=== PATIENT | female | born 1940 | race Caucasian/White ===

== ENCOUNTER 2022-08-27 14:56 | Emergency (ER) | payer MEDICARE, BC ==
[2022-08-27] MEDS ORDERED: Sodium Chloride 0.9% 10 ML Syringe FLUSH PRN (15:11)
[2022-08-27] MEDS ORDERED: Metoprolol Tartrate 5 MG/5 ML SDV IVPUSH ONE (15:16)
[2022-08-27] MEDS ORDERED: Metoprolol Tartrate 5 MG/5 ML SDV ONE (15:18)
[2022-08-27] MEDS ORDERED: Sodium Chloride 0.9% 500 ML IV ONE (15:26)
[2022-08-27 15:57] LABS: BASOPHILS PERCENT AUTO 0.5 % (0.2-1.5); HEMATOCRIT 36.9 % (34.2-48.2); HEMOGLOBIN 12.5 g/dL (11.4-15.5); LYMPHOCYTES ABSOLUTE AUTO 1.6 x10-3/uL (1.0-4.4); LYMPHOCYTES PERCENT AUTO 33.8 % (18.4-52.1); MEAN CORPUSCULAR HEMOGLOBIN 29.2 pg (23.9-33.9); MEAN CORPUSCULAR HGB CONC 33.9 g/dL (31.9-34.8); MEAN CORPUSCULAR VOLUME 86.3 fL (76.7-100.5); MEAN PLATELET VOLUME 11.7 fL (7.1-12.4); MONOCYTES ABSOLUTE AUTO 0.1 x10-3/uL (0.3-1.0); MONOCYTES PERCENT AUTO 2.4 % (4.4-15.7); NEUTROPHILS PERCENT AUTO 63.3 % (30.8-76.2); PLATELET COUNT,PLT 52 x10(3)uL (151-488); RED BLOOD CELL COUNT 4.28 x10(6)uL (3.60-5.20); RED CELL DISTRIBUTION WIDTH 13.4 % (12.3-16.5); WHITE BLOOD CELL COUNT,WBC 4.8 x10-3/uL (3.0-10.3)
[2022-08-27 15:58] LABS: BLOOD UREA NITROGEN,BUN 28 mg/dL (7-18); CALCIUM 8.2 mg/dL (8.6-10.2); CARBON DIOXIDE,CO2 28 mmol/L (21-32); CHLORIDE,CL 99 mmol/L (100-110); CREATININE 0.8 mg/dL (0.55-1.02); ESTIMATED GFR 74 mL/min (>60); GLUCOSE RANDOM 116 mg/dL (80-116); POTASSIUM,K 3.8 mmol/L (3.5-5.3); SODIUM,NA 134 mmol/L (135-145)
[2022-08-27 16:04] LABS: A/G RATIO 0.8; ALANINE AMINOTRANSFERASE,ALT 52 U/L (12-36); ALBUMIN 2.9 g/dL (3.2-4.6); ALKALINE PHOSPHATASE 89 IU/L (56-112); ASPARTATE AMNIOTRANSFERASE,AST 64 IU/L (5-25); BILIRUBIN TOTAL 0.6 mg/dL (0.1-1.3); PROTEIN TOTAL,TP 6.7 g/dL (6.0-8.0)
[2022-08-27 16:06] LABS: INR 1.12 (1.00-1.24); PROTHROMBIN TIME 11.5 sec (9.0-11.1); PTT,PARTIAL THROMBOPLSTIN TIME 26.7 SECONDS (24.4-33.2)
[2022-08-27 16:10] LABS: LACTIC ACID 0.8 mmol/L (0.4-2.0)
[2022-08-27 16:13] LABS: TROPONIN I 9.9 pg/mL (4.0-60.3)
[2022-08-27 16:25] LABS: APPEARANCE,URINE CLEAR (CLEAR); BILIRUBIN,URINE NEGATIVE (NEGATIVE); COLOR,URINE YELLOW (YELLOW); GLUCOSE,URINE NORMAL (NORMAL); KETONES,URINE NEGATIVE (NEGATIVE); LEUKOCYTE ESTERASE,URINE LARGE (NEGATIVE); NITRITE,URINE NEGATIVE (NEGATIVE); OCCULT BLOOD,URINE LARGE (NEGATIVE); PROTEIN,URINE TRACE mg/dL (NEGATIVE); RBC,URINE 0-5 (0-5); SQUAMOUS EPITHELIAL CELLS,UR FEW (NS,R,O); UROBILINOGEN,URINE 1 mg/dL (NEGATIVE); WBC,URINE 0-5 (0-5)
[2022-08-27 16:26] LABS: BACTERIA,URINE FEW (NS)
[2022-08-27] MEDS ORDERED: cefTRIAXone 1 GM Vial IVPUSH STA (16:28)
[2022-08-27 16:43] LABS: INFLUENZA A NAA NEGATIVE (NEGATIVE); INFLUENZA B NAA NEGATIVE (NEGATIVE); RESPIRATORY SYNCYTIAL VIR NAA NEGATIVE (NEGATIVE)
[2022-08-27 16:45] LABS: CORONAVIRUS COVID-19 NAA NEGATIVE (NEGATIVE)
== END 2022-08-27 17:43 ==
LOC: FB.ED 14:56
DX: I48.91 Unspecified atrial fibrillation (principal); I50.9 Heart failure, unspecified; N39.0 Urinary tract infection, site not specified; R41.0 Disorientation, unspecified; Z20.822 Contact with and (suspected) exposure to COVID-19
CPT/HCPCS: 0241U; 36415; 70450; 71045; 80053; 81001; 83605; 83735; 83880; 84484; 85025; 85610; 85730; 87086; 93005; 96374; 96375; 99285; J0696; J3490; J7040